=== PATIENT | female | born 1980 | race Caucasian/White ===

== ENCOUNTER 2016-07-22 11:49 | Emergency (ER) | payer OTHER ==
[2016-07-22 13:26] VITALS: BP 141/76
--- NOTE | 2016-07-22 14:05 | UC ---
Eye Complaint HPI - HPI Summary HPI Summary: PATIENT ARRIVES TO WITH CC OF RIGHT EYE INJECTION AND MUCOPURULENT DRAINAGE FROM THE EYE X 2 DAYS. SHE DENIES SICK CONTACTS OR WORKING WITH CHILDREN. SHE DENIES RECENT URI. SXS HAVE STARTED 2 DAYS AGO AND SHE ENDORSES MATTED SHUT EYES IN THE AM, COPIOUS AMOUNT OF DRAINAGE THROUGHOUT THE DAY AND ERYTHEMA SURROUNDING THE EYE. SHE HASN'T TAKEN ANYTHING FOR RELIEF AND TAKES NO MEDICATIONS OTHERWISE. SHE DENIES COUGH, CONGESTION, N/V/C/D. DENIES EL. - History of Current Complaint Chief Complaint: UCEye Stated Complaint: PINK EYE Hx Obtained From: Patient Hx Last Menstrual Period: 1 WEEK AGO ?: No Onset/Duration: Sudden Onset Timing: Constant Severity Initially: Moderate Severity Currently: Moderate Pain Intensity: 2 Pain Scale Used: 0-10 Numeric Location of Injury: Conjunctiva, Eye Lid (lower), Eye Lid (upper), Periorbital Aggravating Factor(s): Nothing Associated Signs And Symptoms: Positive: Drainage (Purulent) - Risk Factors Penetrating Injury Risk Factor: Negative Globe Rupture Risk Factors: Negative Acute Glaucoma Risk Factors: Eye Inflammation Optic Artery Occlusion Risk Factors: Negative - Allergies/Home Medications Allergies/Adverse Reactions: Allergies Allergy/AdvReac Type Severity Reaction Status Date / Time Shellfish-derived Products Allergy Severe Anaphylatic Verified 07/22/16 13:22 Shock Codeine Allergy Intermediate Nausea And Verified 07/22/16 13:22 Vomiting PMH/Surg Hx/FS Hx/Imm Hx Previously Healthy: Yes Endocrine History Of: Denies: Diabetes, Thyroid Disease Cardiovascular History Of: Denies: Cardiac Disorders, Hypertension Respiratory History Of: Denies: COPD, Asthma GI/ History Of: Denies: Ulcer - Surgical History Surgical History: Yes Surgery Procedure, Year, and Place: MCL repair 1993, 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 - Social History Occupation: Employed Full-time Alcohol Use: None Substance Use Type: None Smoking Status (MU): Never Smoked Tobacco Review of Systems Constitutional: Negative Eyes: Drainage, Eye Redness Respiratory: Negative Cardiovascular: Negative Gastrointestinal: Negative Genitourinary: Negative Neurovascular: Negative Musculoskeletal: Negative Neurological: Negative Psychological: Negative All Other Systems Reviewed And Are Negative: Yes Physical Exam Triage Information Reviewed: Yes Appearance: Well-Appearing, No Pain Distress, Well-Nourished Vital Signs: Initial Vital Signs Temp 97.9 F 07/22/16 13:23 Pulse 79 07/22/16 13:23 Resp 16 07/22/16 13:23 BP 141/76 07/22/16 13:23 Pulse Ox 100 07/22/16 13:23 Vital Signs Reviewed: Yes Eyes: Positive: Conjunctiva Inflamed, Discharge - MUCOPURULENT - COPIOUS FROM RIGHT EYE ONLY ENT: Positive: Pharynx normal, TMs normal Dental Exam: Normal Respiratory: Positive: Chest non-tender, Lungs clear, Normal breath sounds Cardiovascular Exam: Normal Cardiovascular: Positive: RRR Musculoskeletal Exam: Normal Musculoskeletal: Positive: Strength Intact Neurological Exam: Normal Neurological: Positive: Alert Psychological: Positive: Normal Response To Family Skin Exam: Normal Eye Complaint Course/Dx - Course Course Of Treatment: PATIENT IS TREATED WITH ERYTHROMYCIN OINTMENT FOR BACTERIAL CONJUNCTIVITIS. ENCOURAGED PATIENT TO WASH HANDS FREQUENTLY AND USE PURELL. PATIENT MAY RETURN TO WORK. PROVIDER EDUCATED PATIENT ON SUSCEPTIBILITY AND CONTAGION OF PATHOGEN. PATIENT AGREES AND WILL FOLLOW UP NEEDED. OK FOR DISCHARGE. - Differential Dx/Diagnosis Differential Diagnosis/HQI/PQRI: Conjunctivitis, Corneal Abrasion, Uveitis Provider Diagnoses: BACTERIAL CONJUNCTIVITIS Discharge - Discharge Plan Condition: Stable Disposition: HOME Prescriptions: Erythromycin OPHTH.OINT* [Ilotycin OPHTH.OINT*] 1 applic BOTH EYES Q4H #1 ophth.oint MDD 6 Patient Education Materials: Conjunctivitis (ED) Additional Instructions: Warm compresses over the eye as much as possible while awake. Use the ointment until you see no signs of infection anymore or at least 2 full days Wash hands frequently and use Purell Return if worsening symptoms develop.
== END 2016-07-22 14:15 | disposition home or self-care (01) ==
LOC: UCEAST 11:49
DX: H10.89 Other conjunctivitis (principal); Z91.013 Allergy to seafood
CPT/HCPCS: 99212; G0463